=== PATIENT | female | born 1945 | race Caucasian/White ===

== ENCOUNTER → 2017-01-06 | Outpatient (CLI) | payer MEDICARE | LOC: MHCPAIN 09:56 | DX: G89.29 Other chronic pain (principal); M47.22 Other spondylosis with radiculopathy, cervical region | CPT/HCPCS: G0463 ==

== ENCOUNTER → 2017-01-15 | Outpatient (CLI) | payer MEDICARE | LOC: MHCPAIN 10:31 | DX: M50.90 Cervical disc disorder, unspecified, unspecified cervical region (principal) | CPT/HCPCS: J1040; Q9967 ==

== ENCOUNTER → 2017-02-16 | Outpatient (CLI) | payer MEDICARE | LOC: MHCPAIN 10:39 | DX: G89.29 Other chronic pain (principal); M50.90 Cervical disc disorder, unspecified, unspecified cervical region; M54.12 Radiculopathy, cervical region; R51 Headache | CPT/HCPCS: G0463 ==

== ENCOUNTER → 2017-02-19 | Outpatient (CLI) | payer MEDICARE | LOC: MHCPAIN 09:02 | DX: M50.90 Cervical disc disorder, unspecified, unspecified cervical region (principal) ==

== ENCOUNTER → 2017-02-25 | Outpatient (CLI) | payer MEDICARE | LOC: MHCPAIN 11:28 | DX: G89.29 Other chronic pain (principal); M50.90 Cervical disc disorder, unspecified, unspecified cervical region; M54.12 Radiculopathy, cervical region | CPT/HCPCS: G0463 ==

== ENCOUNTER → 2017-02-26 | Outpatient (CLI) | payer MEDICARE | LOC: MHCPAIN 10:02 | DX: M50.322 Other cervical disc degeneration at C5-C6 level (principal) ==

== ENCOUNTER → 2017-03-04 | Outpatient (CLI) | payer MEDICARE | LOC: MHCPAIN 08:18 | DX: G89.29 Other chronic pain (principal); M50.90 Cervical disc disorder, unspecified, unspecified cervical region; M54.12 Radiculopathy, cervical region | CPT/HCPCS: G0463 ==

== ENCOUNTER → 2017-03-12 | Outpatient (CLI) | payer MEDICARE | LOC: MHCPAIN 08:49 | DX: M50.321 Other cervical disc degeneration at C4-C5 level (principal) | CPT/HCPCS: J1100; J2250; J3010 ==

== ENCOUNTER → 2017-04-10 | Outpatient (CLI) | payer MEDICARE | LOC: MHCPAIN 10:51 | DX: G89.29 Other chronic pain (principal); M50.90 Cervical disc disorder, unspecified, unspecified cervical region; Z87.891 Personal history of nicotine dependence | CPT/HCPCS: G0463 ==

== ENCOUNTER → 2018-02-11 | Outpatient (CLI) | payer MEDICARE | LOC: COL.RAD 14:16 | DX: M46.88 Other specified inflammatory spondylopathies, sacral and sacrococcygeal region (principal) | CPT/HCPCS: G0260; J3301 ==

== ENCOUNTER → 2018-05-18 | Outpatient (CLI) | payer MEDICARE | LOC: COL.RAD 12:44 | DX: M46.98 Unspecified inflammatory spondylopathy, sacral and sacrococcygeal region (principal) | CPT/HCPCS: G0260; J3301 ==

== ENCOUNTER → 2018-07-19 | Outpatient (CLI) | payer MEDICARE | LOC: MC.RAD 13:51 | DX: Z12.31 Encounter for screening mammogram for malignant neoplasm of breast (principal) ==

== ENCOUNTER → 2018-09-27 | Outpatient (CLI) | payer MEDICARE | LOC: MHCPAIN 09:57 | DX: G89.29 Other chronic pain (principal); M47.817 Spondylosis without myelopathy or radiculopathy, lumbosacral region; M54.16 Radiculopathy, lumbar region; M53.3 Sacrococcygeal disorders, not elsewhere classified | CPT/HCPCS: G0463 ==

== ENCOUNTER → 2018-09-30 | Outpatient (CLI) | payer MEDICARE | LOC: MHCPAIN 09:53 | DX: M47.817 Spondylosis without myelopathy or radiculopathy, lumbosacral region (principal); M54.16 Radiculopathy, lumbar region | CPT/HCPCS: J1100; Q9967 ==

== ENCOUNTER → 2018-10-12 | Outpatient (CLI) | payer MEDICARE | LOC: MHCPAIN 10:12 | DX: G89.29 Other chronic pain (principal); M47.817 Spondylosis without myelopathy or radiculopathy, lumbosacral region; M54.16 Radiculopathy, lumbar region; M53.3 Sacrococcygeal disorders, not elsewhere classified | CPT/HCPCS: G0463 ==

== ENCOUNTER → 2018-10-14 | Outpatient (CLI) | payer MEDICARE | LOC: MHCPAIN 10:16 | DX: M47.817 Spondylosis without myelopathy or radiculopathy, lumbosacral region (principal); M54.16 Radiculopathy, lumbar region ==

== ENCOUNTER → 2018-10-18 | Outpatient (CLI) | payer MEDICARE | LOC: MHCPAIN 09:59 | DX: G89.29 Other chronic pain (principal); M47.817 Spondylosis without myelopathy or radiculopathy, lumbosacral region; M54.16 Radiculopathy, lumbar region; M53.3 Sacrococcygeal disorders, not elsewhere classified | CPT/HCPCS: G0463 ==

== ENCOUNTER → 2018-10-21 | Outpatient (CLI) | payer MEDICARE | LOC: MHCPAIN 10:05 | DX: M47.817 Spondylosis without myelopathy or radiculopathy, lumbosacral region (principal); M54.16 Radiculopathy, lumbar region ==

== ENCOUNTER → 2018-11-25 | Outpatient (CLI) | payer MEDICARE | LOC: MHCPAIN 13:25 | DX: G89.29 Other chronic pain (principal); M47.817 Spondylosis without myelopathy or radiculopathy, lumbosacral region; M54.16 Radiculopathy, lumbar region; M53.3 Sacrococcygeal disorders, not elsewhere classified | CPT/HCPCS: G0463; J1100; J2250; J3010 ==

== ENCOUNTER → 2018-12-22 | Outpatient (CLI) | payer MEDICARE | LOC: MHCPAIN 10:22 | DX: G89.29 Other chronic pain (principal); M47.817 Spondylosis without myelopathy or radiculopathy, lumbosacral region; M54.16 Radiculopathy, lumbar region; M53.3 Sacrococcygeal disorders, not elsewhere classified | CPT/HCPCS: G0463 ==

== ENCOUNTER → 2019-01-13 | Outpatient (CLI) | payer MEDICARE | LOC: MHCPAIN 10:13 | DX: M54.16 Radiculopathy, lumbar region (principal); M47.817 Spondylosis without myelopathy or radiculopathy, lumbosacral region; M53.3 Sacrococcygeal disorders, not elsewhere classified; G89.29 Other chronic pain | CPT/HCPCS: G0463; J1100; Q9967 ==

== ENCOUNTER → 2019-01-25 | Outpatient (CLI) | payer MEDICARE | LOC: MHCPAIN 11:12 | DX: G89.29 Other chronic pain (principal); M47.817 Spondylosis without myelopathy or radiculopathy, lumbosacral region; M54.16 Radiculopathy, lumbar region; M53.3 Sacrococcygeal disorders, not elsewhere classified | CPT/HCPCS: G0463 ==

== ENCOUNTER → 2019-01-27 | Outpatient (CLI) | payer MEDICARE | LOC: MHCPAIN 10:10 | DX: M47.817 Spondylosis without myelopathy or radiculopathy, lumbosacral region (principal); M54.16 Radiculopathy, lumbar region | CPT/HCPCS: J1100; Q9967 ==

== ENCOUNTER → 2019-02-09 | Outpatient (CLI) | payer MEDICARE | LOC: MHCPAIN 10:41 | DX: G89.29 Other chronic pain (principal); M47.817 Spondylosis without myelopathy or radiculopathy, lumbosacral region; M54.16 Radiculopathy, lumbar region; M53.3 Sacrococcygeal disorders, not elsewhere classified | CPT/HCPCS: G0463 ==

== ENCOUNTER → 2019-06-22 | Outpatient (CLI) | payer MEDICARE | LOC: MHCPAIN 10:44 | DX: G89.29 Other chronic pain (principal); M47.817 Spondylosis without myelopathy or radiculopathy, lumbosacral region; M54.16 Radiculopathy, lumbar region; M53.3 Sacrococcygeal disorders, not elsewhere classified | CPT/HCPCS: G0463 ==

== ENCOUNTER → 2020-09-13 | Outpatient (CLI) | payer MEDICARE | LOC: MC.RAD 10:35 | DX: Z12.31 Encounter for screening mammogram for malignant neoplasm of breast (principal) ==

== ENCOUNTER 2021-07-09 12:35 | Outpatient (CLI) | payer MEDICARE ==
[2021-07-09] VITALS (7 sets, daily range): BP systolic 100–123; BP diastolic 57–62; PULSE 65–74; TEMP 98.3
[~2021-07-09] VITALS: Ht 162.6 cm; Wt 54.0 kg
[2021-07-09] MEDS ORDERED: WELLBUTRIN 75MG75 MG PO (14:42)
[2021-07-09] MEDS ORDERED: ATIVAN 0.50.5 MG/TAB PO (14:43)
[2021-07-09] MEDS ORDERED: NEURONTIN300 MG/CAP PO (14:43)
[2021-07-09] MEDS ORDERED: CELEXA40 MG PO (14:43)
[2021-07-09] MEDS ORDERED: VENTOLIN0.09 MG IH (14:44)
== END 2021-07-09 18:15 | disposition home or self-care (01) ==
LOC: EUO 12:35
DX: U07.1 COVID-19 (principal); E66.9 Obesity, unspecified; J44.9 Chronic obstructive pulmonary disease, unspecified
CPT/HCPCS: M0243; Q0244

== ENCOUNTER 2021-07-11 13:27 | Emergency (ER) | payer MEDICARE ==
[~2021-07-11] VITALS: Ht 162.6 cm; Wt 95.0 kg
[~2021-07-11 13:27] MED LIST: ATIVAN 0.50.5 MG/TAB PO; CELEXA40 MG PO; NEURONTIN300 MG/CAP PO; VENTOLIN0.09 MG IH; WELLBUTRIN 75MG75 MG PO
[2021-07-11 13:51] VITALS: TEMP 97.7
[2021-07-11 14:46] LABS: BASO % 0.2 % (0.0-2.0); EOS % 0.5 % (0-4.0); GRAN # 2.3 K/mm3 (1.4-6.5); GRAN % 53.5 % (42.2-75.2); HEMATOCRIT 41.8 % (37.0-47.0); HEMOGLOBIN 13.8 g/dl (12.5-16.0); LYMPH # 1.5 K/mm3 (1.2-3.4); LYMPH % 35.3 % (20.0-51.0); MEAN CELL VOLUME 88 fl (80.0-100.0); MEAN CORPUSCULAR HEMOGLOBIN 29 pg (27.0-31.0); MEAN CORPUSCULAR HGB CONC 33 g/dl (33.0-37.0); MEAN PLATELET VOLUME 10.3 fl (7.4-10.4); MONO # 0.4 K/mm3 (0.1-0.6); PLATELET COUNT 211 K/mm3 (130-400); RED BLOOD COUNT 4.77 M/mm3 (4.10-5.30); REDCELL DISTRIBUTION WIDTH-CV 14.3 % (11.5-14.5)
[2021-07-11 15:11] LABS: ALBUMIN 3.2 gm/dL (3.4-4.8); BILIRUBIN,TOTAL 0.3 mg/dL (0.2-1.2); C-REACTIVE PROTEIN 4.62 mg/dL (0.00-0.50); CALCIUM 9.6 mg/dL (8.4-10.2); CREATININE, serum 0.81 mg/dL (0.57-1.11); POTASSIUM 3.6 mmol/L (3.5-4.5); TOTAL PROTEIN 6.8 gm/dL (6.2-8.1)
[2021-07-11 15:19] LABS: TROPONIN-I 0.015 ng/mL (0.00-0.033)
[2021-07-11 15:35] LABS: INR 1.1 (0.8-3.0); PROTHROMBIN TIME 12.2 SECONDS (9.7-12.8)
[2021-07-11 15:37] LABS: PARTIAL THROMBOPLASTIN TIME 26.9 SECONDS (26.0-37.0)
[2021-07-11 16:49] VITALS: BP 134/82; PULSE 67
== END 2021-07-11 16:49 | disposition home or self-care (01) ==
LOC: COL.ER 13:27
PROVIDERS: Student in an Organized Health Care Education/Training Program
DX: U07.1 COVID-19 (principal); J44.9 Chronic obstructive pulmonary disease, unspecified; Z87.891 Personal history of nicotine dependence; Z79.899 Other long term (current) drug therapy
CPT/HCPCS: J7030

== ENCOUNTER 2021-08-30 11:00 | Outpatient (RCR) | payer MEDICARE | END 2021-09-13 | disposition home or self-care (01) | LOC: PT.GENESIS | DX: R42 Dizziness and giddiness (principal); R26.0 Ataxic gait; R25.1 Tremor, unspecified ==

== ENCOUNTER → 2021-10-22 | Outpatient (CLI) | payer MEDICARE | LOC: MC.RAD 10-03 10:15 | DX: Z12.31 Encounter for screening mammogram for malignant neoplasm of breast (principal) ==

== ENCOUNTER 2021-12-07 13:17 | Emergency (ER) | payer MEDICARE ==
[~2021-12-07] VITALS: Ht 162.6 cm; Wt 97.7 kg
[2021-12-07 13:31] VITALS: TEMP 98.4
[2021-12-07] MEDS ORDERED: NORCO 325 MG-51 TAB PO (14:58)
[2021-12-07 15:19] VITALS: BP 139/78; PULSE 68
== END 2021-12-07 15:30 | disposition home or self-care (01) ==
LOC: COL.ER 13:17
DX: S09.90XA Unspecified injury of head, initial encounter (principal); S63.255A Unspecified dislocation of left ring finger, initial encounter; Z87.891 Personal history of nicotine dependence; W19.XXXA Unspecified fall, initial encounter; Y93.01 Activity, walking, marching and hiking
CPT/HCPCS: J2270

== ENCOUNTER → 2022-07-04 | Outpatient (CLI) | payer MEDICARE ==
[~2022-07-04] MED LIST changes: +NORCO 325 MG-51 TAB PO
== END ==
LOC: COL.RAD 06:59
DX: M46.98 Unspecified inflammatory spondylopathy, sacral and sacrococcygeal region (principal)
CPT/HCPCS: G0260; J3301

== ENCOUNTER → 2022-10-23 | Outpatient (CLI) | payer MEDICARE | LOC: MC.RAD 10:35 | DX: Z12.31 Encounter for screening mammogram for malignant neoplasm of breast (principal) ==

== ENCOUNTER 2022-12-11 09:53 | Emergency (ER) | payer MEDICARE ==
[~2022-12-11] VITALS: Ht 162.6 cm; Wt 92.7 kg
[2022-12-11 10:38] LABS: COLLECTION METHOD CLEAN CATCH
[2022-12-11 10:57] LABS: MUCOUS Present (NOT PRESENT); URINE BACTERIA Rare /hpf (NONE SEEN); URINE RBC 0-2 /hpf (0-2)
[2022-12-11 11:00] LABS: PH 6.5 (5.0-8.5); URINE APPEARANCE Hazy (CLEAR/HAZY); URINE BLOOD Negative (NEGATIVE); URINE COLOR Yellow (YELLOW); URINE GLUCOSE Negative (NEGATIVE); URINE KETONE Negative (NEGATIVE); URINE NITRATE Negative (NEGATIVE); URINE PROTEIN(semi-quant) Negative (NEGATIVE); URINE UROBILINOGEN 0.2 E.U/dL (0.2-1.0)
[2022-12-11 11:32] LABS: BASO % 0.7 % (0.0-2.0); EOS # 0.2 K/mm3 (0.0-0.7); EOS % 2.7 % (0.0-4.0); GRAN # 3.7 K/mm3 (1.4-6.5); GRAN % 66.7 % (42.2-75.2); HEMATOCRIT 38.8 % (37.0-47.0); HEMOGLOBIN 12.7 g/dl (12.5-16.0); LYMPH # 1.1 K/mm3 (1.2-3.4); LYMPH % 19.4 % (20.0-51.0); MEAN CELL VOLUME 98 fl (80.0-100.0); MEAN CORPUSCULAR HEMOGLOBIN 32 pg (27-31); MEAN CORPUSCULAR HGB CONC 33 g/dl (33.0-37.0); MEAN PLATELET VOLUME 10.4 fl (7.4-10.4); MONO # 0.6 K/mm3 (0.1-0.6); MONO % 10.3 % (1.7-9.3); PLATELET COUNT 220 K/mm3 (130-400); RED BLOOD COUNT 3.96 M/mm3 (4.10-5.30); REDCELL DISTRIBUTION WIDTH-CV 13.6 % (11.5-14.5)
[2022-12-11 11:47] LABS: ALANINE AMINOTRANSFERASE 10 U/L (0-55); ALBUMIN 3.7 gm/dL (3.4-4.8); ALKALINE PHOSPHATASE 69 U/L (40-150); ANION GAP 6 mmol/L (7-16); AST,SGOT 30 U/L (5-34); BILIRUBIN,TOTAL 0.4 mg/dL (0.2-1.2); BLOOD UREA NITROGEN 26 mg/dL (10-20); CARBON DIOXIDE 27 mmol/L (23-31); CHLORIDE 109 mmol/L (98-107); CREATININE, serum 0.88 mg/dL (0.57-1.11); GLUCOSE 92 mg/dL (70-99); SODIUM 142 mmol/L (136-145); TOTAL PROTEIN 6.6 gm/dL (6.2-8.1)
[2022-12-11 11:55] LABS: TROPONIN-I < 0.010 ng/mL (0.00-0.033)
[2022-12-11 12:47] VITALS: BP 131/68; PULSE 53; TEMP 98
== END 2022-12-11 12:55 | disposition home or self-care (01) ==
LOC: COL.ER 09:53
PROVIDERS: Emergency Medicine; Nurse Practitioner
DX: S63.501A Unspecified sprain of right wrist, initial encounter (principal); S09.90XA Unspecified injury of head, initial encounter; S00.11XA Contusion of right eyelid and periocular area, initial encounter; W18.30XA Fall on same level, unspecified, initial encounter; W22.8XXA Striking against or struck by other objects, initial encounter